=== PATIENT | female | born 1955 | race African-American/Black ===

== ENCOUNTER 2024-08-11 15:39 | Inpatient (IN) | payer OTHER ==
[2024-08-11 18:18] VITALS: BMI 25.0
[2024-08-11] MEDS ORDERED: MAGNESIUM HYDROX 2400MG/30ML ORAL SUSPENSION 30 ML CUP PO PRN (18:35)
[2024-08-11] MEDS ORDERED: BISMUTH SUBSALICYLATE 524 MG/30 ML PO PRN (18:35)
[2024-08-11] MEDS ORDERED: P-EPHED 60MG/TRIPROLIDI 2.5MG TABLET PO PRN (18:35)
[2024-08-11] MEDS ORDERED: BENZONATATE 200 MG CAPSULE PO PRN (18:35)
[2024-08-11] MEDS ORDERED: MAG HYDROX/AL HYDROX/SIMETH 30 ML UNIT-DOSE CUP PO PRN (18:35)
[2024-08-11] MEDS ORDERED: BENZOCAINE/MENTHOL (CHLORASEPTIC ) LOZENGE MM PRN (18:35)
[2024-08-11] MEDS ORDERED: guaiFENesin 600 MG TABLET.ER (FP) PO PRN (18:35)
[2024-08-11] MEDS ORDERED: ONDANSETRON *ODT* 4 MG TABLET SL PRN (18:35)
[2024-08-11] MEDS ORDERED: POLYETHYLENE GLYCOL (HEALTHYLAX) 3350 17 GM PACKET PO PRN (18:35)
[2024-08-11] MEDS ORDERED: NICOTINE POLACRILEX 2 MG GUM BUC PRN (18:35)
[2024-08-11] MEDS ORDERED: NICOTINE POLACRILEX 2 MG LOZENGE BC PRN (18:35)
[2024-08-11] MEDS ORDERED: ACETAMINOPHEN 325 MG TABLET (FP) ONE (21:24)
[2024-08-11] MEDS: ACETAMINOPHEN 325 MG TABLET (FP) PO PRN (21:27)
[2024-08-11] MEDS: MELATONIN 5 MG TABLETS PO SCH (22:20)
[2024-08-11] MEDS: THIAMINE 100 MG TABLET PO SCH (22:20)
[2024-08-12] MEDS ORDERED: ALBUTEROL SO4 HFA INHALER IH PRN (09:02)
[2024-08-12] MEDS: BUDESONIDE/FORMETEROL FUMARATE 80/4.5 mcg INHALER IH SCH (09:43)
[2024-08-12] MEDS: PRENATAL VITAMINS W/ FOLIC ACID TABLET (FP) PO SCH (09:43)
[2024-08-12] MEDS: EFAVIRENZ 600 MG TABLET PO SCH (14:29)
[2024-08-12 14:49] LABS: HEMATOCRIT 32.5 % (32.4-45.2); HEMOGLOBIN 10.6 GM/dL (10.7-15.3); MCH 32.5 pg (25.7-33.7); MCHC 32.5 g/dl (32.0-36.0); MEAN CELL VOLUME 100.2 fl (80-96); MEAN PLT VOLUME 8.4 fl (7.5-11.1); PLATELET COUNT 197 10^3/uL (134-434); RBC 3.24 M/mm3 (3.60-5.2); RDW 17.2 % (11.6-15.6); WHITE BLOOD COUNT 3.4 K/mm3 (4.0-10.0)
[2024-08-12] MEDS: EMTRICITABINE 200MG/TENOFOVIR 300MG PO SCH (15:01)
[2024-08-12 15:10] LABS: POTASSIUM 3.5 mmol/L (3.5-5.1)
[2024-08-12 15:58] LABS: BLOOD UREA NITROGEN 13.9 mg/dL (7-18); CALCIUM 8.5 mg/dL (8.5-10.1)
[2024-08-12 16:00] LABS: ALBUMIN 2.6 g/dl (3.4-5.0)
[2024-08-12 16:02] LABS: CREATININE 0.7 mg/dL (0.55-1.3)
[2024-08-12 16:03] LABS: BILIRUBIN,TOTAL 0.8 mg/dL (0.2-1)
[2024-08-12 16:04] LABS: TOT PROT 6.2 g/dl (6.4-8.2)
[2024-08-12] MEDS ORDERED: SUVOREXANT 5 MG TABLET PO PRN (22:00)
[2024-08-13] MEDS: LIDOCAINE 5% TOPICAL PATCH TP SCH (15:08)
[2024-08-13] MEDS: METHYL SALICYLATE/MENTHOL 30 GM TUBE TP SCH (15:24)
[2024-08-13] MEDS ORDERED: APIXABAN 5 MG TABLET PO SCH (22:00)
[2024-08-13] MEDS: ATORVASTATIN CA 10 MG TABLET (FP) PO SCH (22:56)
[2024-08-13] MEDS: APIXABAN 5 MG TABLET PO SCH (22:56)
[2024-08-13] MEDS: LIDOCAINE PATCH REMOVAL MC SCH (22:56)
[2024-08-14 10:50] VITALS: BP 118/60; PULSE 62; RESP 16; TEMP 98.4
== END 2024-08-14 12:10 | disposition home or self-care (01) | DRG 897 ==
LOC: YASAS 15:39 → Y6N 20:41
PROVIDERS: ADMIT Allergy & Immunology; ATTEND Surgery
PROC: HZ2ZZZZ Detoxification Services for Substance Abuse Treatment (ICD-10-PCS; principal; 2024-08-11)
DX: F10.230 Alcohol dependence with withdrawal, uncomplicated (principal); F14.20 Cocaine dependence, uncomplicated; F33.2 Major depressive disorder, recurrent severe without psychotic features; F17.210 Nicotine dependence, cigarettes, uncomplicated; F20.9 Schizophrenia, unspecified; F10.282 Alcohol dependence with alcohol-induced sleep disorder; F10.24 Alcohol dependence with alcohol-induced mood disorder; Z21 Asymptomatic human immunodeficiency virus [HIV] infection status; I10 Essential (primary) hypertension; J45.909 Unspecified asthma, uncomplicated; M25.562 Pain in left knee; M54.50 Low back pain, unspecified; G89.29 Other chronic pain; Z99.89 Dependence on other enabling machines and devices; Z86.718 Personal history of other venous thrombosis and embolism; Z79.01 Long term (current) use of anticoagulants
CPT/HCPCS: 36415; 80053; 80305; 80307; 81025; 85027; 86780; 93005; 93010

== ENCOUNTER 2025-01-30 12:45 | Inpatient (IN) | payer OTHER ==
[2025-01-30 14:06] VITALS: BMI 24.6
[2025-01-30] MEDS ORDERED: NICOTINE POLACRILEX 2 MG LOZENGE BC PRN (15:27)
[2025-01-30] MEDS ORDERED: DOCUSATE SODIUM 100 MG CAPSULE (FP) PO PRN (15:27)
[2025-01-30] MEDS ORDERED: BENZOCAINE/MENTHOL (CHLORASEPTIC ) LOZENGE MM PRN (15:27)
[2025-01-30] MEDS ORDERED: guaiFENesin 600 MG TABLET.ER (FP) PO PRN (15:27)
[2025-01-30] MEDS ORDERED: NALOXONE (NARCAN) HCL 4 MG/0.1 ML SPRAY NS PRN (15:27)
[2025-01-30] MEDS ORDERED: BISACODYL 5 MG TABLET.DR (FP) PO PRN (15:27)
[2025-01-30] MEDS ORDERED: NICOTINE POLACRILEX 2 MG GUM BUC PRN (15:27)
[2025-01-30] MEDS ORDERED: POLYETHYLENE GLYCOL (HEALTHYLAX) 3350 17 GM PACKET PO PRN (15:27)
[2025-01-30] MEDS ORDERED: BENZONATATE 200 MG CAPSULE PO PRN (15:27)
[2025-01-30] MEDS ORDERED: IBUPROFEN 400 MG TABLET (FP) PO PRN (15:27)
[2025-01-30] MEDS ORDERED: MAGNESIUM HYDROX 2400MG/30ML ORAL SUSPENSION 30 ML CUP PO PRN (15:27)
[2025-01-30] MEDS ORDERED: IBUPROFEN 600 MG TABLET (FP) PO PRN (15:27)
[2025-01-30] MEDS: ATORVASTATIN CA 10 MG TABLET (FP) PO SCH (22:35)
[2025-01-30] MEDS: THIAMINE 100 MG TABLET PO SCH (22:35)
[2025-01-30] MEDS: APIXABAN 5 MG TABLET PO SCH (22:35)
[2025-01-30] MEDS: MELATONIN 5 MG TABLETS PO SCH (22:35)
[2025-01-30] MEDS: ACETAMINOPHEN 325 MG TABLET (FP) PO PRN (22:37)
[2025-01-31 09:11] LABS: CHLORIDE 109 mmol/L (98-107); POTASSIUM 3.7 mmol/L (3.5-5.1); SODIUM 142 mmol/L (136-145)
[2025-01-31 09:13] LABS: CALCIUM 8.5 mg/dL (8.5-10.1)
[2025-01-31 09:14] LABS: ALBUMIN 2.6 g/dl (3.4-5.0); ANION GAP 4 mmol/L (4-13); BLOOD UREA NITROGEN 18.6 mg/dL (7-18); CO2 30 mmol/L (21-32); GLUCOSE,RANDOM 88 mg/dL (74-106)
[2025-01-31 09:17] LABS: CREATININE 0.7 mg/dL (0.55-1.3); SGOT/AST 19 U/L (15-37); SGPT/ALT 13 U/L (13-61)
[2025-01-31 09:19] LABS: BILIRUBIN,TOTAL 0.7 mg/dL (0.2-1); HEMOGLOBIN 10.4 g/dL (11.2-15.7); MCHC 31.5 g/dl (32.2-35.5); PLATELET COUNT 184 x10^3/uL (182-369); RDW 13.9 % (12.4-16.4); TOT PROT 6.4 g/dl (6.4-8.2)
[2025-01-31 09:20] LABS: ALK PHOS 47 U/L (45-117)
[2025-01-31] MEDS: PRENATAL VITAMINS W/ FOLIC ACID TABLET (FP) PO SCH (09:41)
[2025-01-31] MEDS: ABACAVIR/DOLUTEGRAVIR/LAMIVUDI (TRIUMEQ) TABLET PO SCH (09:42)
[2025-01-31] MEDS: MIRTAZAPINE 15 MG TABLET (FP) PO SCH (21:31)
[2025-01-31 23:22] LABS: PH,URINE 5.5 (5.0-8.0); URINE APPEARANCE CLEAR; URINE BILIRUBIN NEGATIVE (NEGATIVE); URINE COLOR YELLOW; URINE GLUCOSE (UA) NEGATIVE (NEGATIVE); URINE KETONE NEGATIVE (NEGATIVE); URINE LEUK ESTERASE NEGATIVE (NEGATIVE); URINE NITRITE NEGATIVE (NEGATIVE); URINE PROTEIN NEGATIVE (NEGATIVE); URINE UROBILINOGEN 0.2 mg/dL (0.2-1.0)
[2025-02-01] MEDS: LOPERAMIDE HCL 2 MG CAPSULE PO PRN (09:20)
[2025-02-02] MEDS: NALTREXONE HCL 50 MG TABLET PO SCH (09:57)
[2025-02-04] MEDS: ACAMPROSATE CALCIUM 333 MG TABLET.DR PO SCH (15:45)
[2025-02-04] MEDS: GABAPENTIN 100 MG CAPSULE PO SCH (15:45)
[2025-02-04] MEDS: BACLOFEN 10 MG TABLET (FP) PO SCH (21:01)
[2025-02-04] MEDS: MAG HYDROX/AL HYDROX/SIMETH 30 ML UNIT-DOSE CUP PO PRN (22:36)
[2025-02-04] MEDS: TRIMETHOBENZAMIDE HCL 200MG/2ML INJ IM ONE (23:51)
[2025-02-05] MEDS: NALTREXONE HCL 50 MG TABLET PO SCH (10:06)
[2025-02-06] MEDS: FAMOTIDINE 20 MG TABLET PO SCH (18:00)
[2025-02-06] MEDS: MELATONIN 5 MG TABLETS PO SCH (21:34)
[2025-02-08] MEDS: LIDOCAINE 5% TOPICAL PATCH TP SCH (13:26)
[2025-02-08] MEDS: LIDOCAINE PATCH REMOVAL MC SCH (21:14)
[2025-02-09] MEDS ORDERED: SUVOREXANT 10 MG TABLET PO PRN (22:00)
[2025-02-10] MEDS: IBUPROFEN 400 MG TABLET (FP) PO PRN (09:59)
[2025-02-11] MEDS: GABAPENTIN 100 MG CAPSULE PO SCH (14:56)
[2025-02-12 06:55] VITALS: RESP 16; TEMP 96.9
[2025-02-12 10:57] VITALS: BP 149/68; PULSE 70
== END 2025-02-12 13:15 | disposition home or self-care (01) | DRG 895 ==
LOC: YASAS 12:45 → Y3NR 17:22 → Y5N 02-01 11:47
PROVIDERS: ADMIT Psychiatry & Neurology Pain Medicine; ATTEND Psychiatry & Neurology Pain Medicine
PROC: HZ42ZZZ Group Counseling for Substance Abuse Treatment, Cognitive-Behavioral (ICD-10-PCS; principal; 2025-01-30)
DX: F10.20 Alcohol dependence, uncomplicated (principal); F14.20 Cocaine dependence, uncomplicated; F33.2 Major depressive disorder, recurrent severe without psychotic features; F17.210 Nicotine dependence, cigarettes, uncomplicated; F10.282 Alcohol dependence with alcohol-induced sleep disorder; F10.24 Alcohol dependence with alcohol-induced mood disorder; F41.9 Anxiety disorder, unspecified; Z21 Asymptomatic human immunodeficiency virus [HIV] infection status; I10 Essential (primary) hypertension; K21.9 Gastro-esophageal reflux disease without esophagitis; M17.12 Unilateral primary osteoarthritis, left knee; M54.50 Low back pain, unspecified; Z86.718 Personal history of other venous thrombosis and embolism; Z79.01 Long term (current) use of anticoagulants; Z79.899 Other long term (current) drug therapy; Z99.89 Dependence on other enabling machines and devices; Z91.410 Personal history of adult physical and sexual abuse; Z63.0 Problems in relationship with spouse or partner
CPT/HCPCS: 36415; 80053; 80305; 80307; 81003; 85027; 86780; 87811; J0475